=== PATIENT | female | born 1935 | race Caucasian/White ===

== ENCOUNTER 2021-06-12 09:17 | Emergency (ER) | payer MEDICARE ==
--- NOTE | 2021-06-12 10:12 | ERPHSYRPT ---
- History of Present Illness Time Seen by Provider: 06/12/21 10:11 Source: patient Exam Limitations: no limitations Patient Subjective Stated Complaint: pt here with increase sob since yesterday, she has hx of chf and took 3 extra water pills yesterday , she also states she was exposed to covid 2 weeks ago and is worried she has covid . Triage Nursing Assessment: pt alert, resp easy, skin w/d/p. chest clear, abd soft, edema to lower legs, pt also states she is nauseated, Physician History: pt here with increase sob since yesterday, she has hx of chf and took 3 extra water pills yesterday , she also states she was exposed to covid 2 weeks ago and is worried she has covid . Timing/Duration: yesterday Activities at Onset: none Severity of Dyspnea-Max: moderate Severity of Dyspnea-Current: moderate Possible Cause: frequent episodes Modifying Factors: Improves With: nothing Associated Symptoms: wheezing, weakness, No lightheadedness, No ankle swelling, No calf pain, No heaviness, No heart racing, No lightheadedness, No leg swelling Allergies/Adverse Reactions: erythromycin base [From Staticin] Allergy (Verified 06/12/21 09:49) ethyl alcohol [From Staticin] Allergy (Verified 06/12/21 09:49) lisinopril Adverse Reaction (Verified 06/12/21 09:49) metformin Adverse Reaction (Verified 06/12/21 09:49) Hx Influenza Vaccination/Date Given: Yes Hx Pneumococcal Vaccination/Date Given: Yes Immunizations Up to Date: Yes Travel Risk - International Travel Have you traveled outside of the country in past 3 weeks: No - Coronavirus Screening Are you exhibiting any of the following symptoms?: Yes Symptoms: Shortness of Breath Close contact with a COVID-19 positive Pt in past 14-21 Days: Yes - Vaccine Status Have you recieved a Covid-19 vaccination: Yes 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[employer] - Vaccination Dates Date of 2cond Vaccination (if applicable): december - Review of Systems Constitutional: No Fever, No Chills Eyes: No Symptoms Ears, Nose, & Throat: No Symptoms Respiratory: Dyspnea, Dyspnea on Exertion (DIXON), No Cough Cardiac: No Chest Pain, No Edema, No Syncope Abdominal/Gastrointestinal: No Abdominal Pain, No Nausea, No Vomiting, No Diarrhea Genitourinary Symptoms: No Dysuria Musculoskeletal: No Back Pain, No Neck Pain Skin: No Rash Neurological: No Dizziness, No Focal Weakness, No Sensory Changes Psychological: No Symptoms Endocrine: No Symptoms All Other Systems: Reviewed and Negative - Past Medical History Pertinent Past Medical History: Yes Cardiac History: Congestive Heart Failure, Coronary Artery Disease, Hypertension Respiratory History: CHF Endocrine Medical History: Diabetes Type II - Past Surgical History Past Surgical History: Yes Gastrointestinal: Cholecystectomy Female Surgical History: Hysterectomy - Social History Smoking Status: Never smoker Exposure to second hand smoke: No Drug Use: none Patient Lives Alone: No - Female History Hx Last Menstrual Period: post Hx Now: No - Nursing Vital Signs Nursing Vital Signs: Initial Vital Signs Temperature 97.0 F 06/12/21 09:31 Pulse Rate 85 06/12/21 09:31 Respiratory Rate 18 06/12/21 09:31 Blood Pressure 123/101 06/12/21 09:31 O2 Sat by Pulse Oximetry 95 06/12/21 09:31 Pain Scale Pain Intensity 0 - Physical Exam General Appearance: no apparent distress, alert Eye Exam: PERRL/EOMI Neck Exam: normal inspection, supple Respiratory Exam: diminished breath sounds, rhonchi, wheezing Cardiovascular/Chest Exam: normal heart sounds, regular rate/rhythm Abdominal/Gastrointestinal Exam: soft, No tenderness, No distention, No mass Extremity Exam: non-tender, normal range of motion, normal inspection, no calf tenderness, no pedal edema Neurologic Exam: alert, oriented x 3, cooperative, 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, sensation nml, No motor deficits Skin Exam: normal color, warm, No dry SpO2 Interpretation: normal SpO2: 95 O2 Delivery: Room Air - Course Nursing assessment & vital signs reviewed: Yes EKG Interpreted by Me: Sinus Rhythm - Radiology Exams Chest X-ray Interpretation: Reviewed by me (Early CHF changes) Ordered Tests: Active Orders 24 hr Category Date Time Status [employer] STAT Care 06/12/21 10:08 Active EKG-ER Only STAT Care 06/12/21 10:06 Active Oxygen-ED Only Nasal Cannula 2 lpm Care 06/12/21 10:06 Active CHEST 2 VIEWS (PA AND LAT) Stat Exams 06/12/21 10:09 Taken CBC W DIFF Stat Lab 06/12/21 10:06 Completed CMP Stat Lab 06/12/21 10:06 Completed D-DIMER QUANTITATIVE Stat Lab 06/12/21 10:06 Completed MAGNESIUM Stat Lab 06/12/21 10:06 Completed NT PRO BNP Stat Lab 06/12/21 10:06 Completed TROPONIN Q3H Lab 06/12/21 10:15 Completed TROPONIN Q3H Lab 06/12/21 13:15 Ordered TROPONIN Q3H Lab 06/12/21 16:15 Ordered TROPONIN Q3H Lab 06/12/21 19:15 Ordered TROPONIN Q3H Lab 06/12/21 22:15 Ordered UA W/RFX UR CULTURE Stat Lab 06/12/21 10:07 Ordered Lab/Rad Data: Laboratory Result Diagrams 06/12/21 10:06 06/12/21 10:06 Laboratory Results 06/12/21 06/12/21 06/12/21 Range/Units 10:15 10:06 10:06 WBC (4.0-10.5) K/mm3 RBC (4.1-5.4) M/mm3 Hgb (12.0-16.0) gm/dl Hct (35-47) % MCV (78-100) fl MCH (26-32) pg MCHC (32-36) g/dl RDW (11.5-14.0) % Plt Count (150-450) K/mm3 MPV (7.5-11.0) fl Gran % (36.0-66.0) % Eos # (Auto) (0-0.5) Absolute Lymphs (auto) (1.0-4.6) Absolute Monos (auto) (0.0-1.3) Lymphocytes % (24.0-44.0) % Monocytes % (0.0-12.0) % Eosinophils % (0.00-5.0) % Basophils % (0.0-0.4) % Absolute Granulocytes (1.4-6.9) Basophils # (0-0.4) D-Dimer 352 (215-500) ng/mL Sodium 139 (137-145) mmol/L Potassium 4.0 (3.5-5.1) mmol/L Chloride 105 (98-107) mmol/L Carbon Dioxide 23 (22-30) mmol/L Anion Gap 15.0 (5-15) MEQ/L BUN 21 H (7-17) mg/dL Creatinine 0.85 (0.52-1.04) mg/dL Estimated GFR > 60.0 ML/MIN Glucose 217 H (74-106) mg/dL Calcium 9.1 (8.4-10.2) mg/dL Magnesium 2.1 (1.6-2.3) mg/dL Total Bilirubin 0.70 (0.2-1.3) mg/dL AST 21 (14-36) U/L ALT 11 (0-35) U/L Alkaline Phosphatase 88 (38-126) U/L Troponin I < 0.012 (0.000-0.034) ng/mL NT-Pro-B Natriuret Pep 5940 H (0-1800) pg/mL Serum Total Protein 6.7 (6.3-8.2) g/dL Albumin 3.9 (3.5-5.0) g/dL 06/12/21 Range/Units 10:06 WBC 7.5 (4.0-10.5) K/mm3 RBC 4.84 (4.1-5.4) M/mm3 Hgb 14.0 (12.0-16.0) gm/dl Hct 44.8 (35-47) % MCV 92.6 (78-100) fl MCH 28.9 (26-32) pg MCHC 31.3 L (32-36) g/dl RDW 14.6 H (11.5-14.0) % Plt Count 236 (150-450) K/mm3 MPV 11.4 H (7.5-11.0) fl Gran % 73.0 H (36.0-66.0) % Eos # (Auto) 0.18 (0-0.5) Absolute Lymphs (auto) 1.17 (1.0-4.6) Absolute Monos (auto) 0.68 (0.0-1.3) Lymphocytes % 15.5 L (24.0-44.0) % Monocytes % 9.0 (0.0-12.0) % Eosinophils % 2.4 (0.00-5.0) % Basophils % 0.1 (0.0-0.4) % Absolute Granulocytes 5.49 (1.4-6.9) Basophils # 0.01 (0-0.4) D-Dimer (215-500) ng/mL Sodium (137-145) mmol/L Potassium (3.5-5.1) mmol/L Chloride (98-107) mmol/L Carbon Dioxide (22-30) mmol/L Anion Gap (5-15) MEQ/L BUN (7-17) mg/dL Creatinine (0.52-1.04) mg/dL Estimated GFR ML/MIN Glucose (74-106) mg/dL Calcium (8.4-10.2) mg/dL Magnesium (1.6-2.3) mg/dL Total Bilirubin (0.2-1.3) mg/dL AST (14-36) U/L ALT (0-35) U/L Alkaline Phosphatase (38-126) U/L Troponin I (0.000-0.034) ng/mL NT-Pro-B Natriuret Pep (0-1800) pg/mL Serum Total Protein (6.3-8.2) g/dL Albumin (3.5-5.0) g/dL - Progress Progress: improved Air Movement: good Blood Culture(s) Obtained: No Antibiotics given: No Counseled pt/family regarding: lab results, diagnosis, need for follow-up, rad results - Departure Departure Disposition: Home Clinical Impression: CHF (congestive heart failure), NYHA class II Qualifiers: Congestive heart failure type: combined Congestive heart failure chronicity: acute on chronic Qualified Code(s): I50.43 - Acute on chronic combined systolic (congestive) and diastolic (congestive) heart failure Condition: Stable Critical Care Time: Yes Critical Care Time(excluding separately billable procedures): Critical 30-74 mins Referrals: DOCTOR,NO FAMILY [Primary Care Provider] - Instructions: Heart Failure, Heart Failure, Adult (DC) Additional Instructions: Discharge/Care Plan MIGUEL A KEVIN was seen on 06/12/21 in the Emergency Room. The patient was cou nseled regarding Diagnosis,Lab results, Imaging studies, need for follow up and when to return to the Emergency Room. Prescriptions given: Discharge Note I have spoken with the patient and/or caregivers. I have explained the patient's condition, diagnosis and treatment plan based on the information available to me at this time. I have answered the patient's and/or caregiver's questions and addressed any concerns. The patient and/or caregivers have as good understanding of the patient's diagnosis, condition and treatment plan as can be expected at this point. The vital signs have been stable. The patient's condition is stable and appropriate for discharge from the emergency department. The patient will pursue further outpatient evaluation with the primary care physician or other designated or consulting physician as outlined in the discharge instructions. The patient and/or caregivers are agreeable to this plan of care and follow-up instructions have been explained in detail. The patient and/or caregivers have received these instruction. The patient/and or caregivers are aware that any significant change in condition or worsening of symptoms should prompt an immediate return to this or the closest emergency department or call 911. MIGUEL A KEVIN was seen on 06/12/21 n the Emergency Room. At that time you were treated for an emergent condition, during your visit Laboratory, Radiology and/or other procedures may have been ordered. It is very important that you follow-up with your Primary Care Physician NO FAMILY DOCTOR within the next 24- 48 hours to review your Emergency Room visit and the final results of testing that was ordered. Some test results such as Urine Cultures, Blood Cultures, and other cultures if ordered will not be finalized for 24-48 hours. If you do not have a Primary Care Provider please call the medical records department at [phone] ext [phone] to obtain a copy of your results or you may sign into our patient portal to obtain these results by visiting us @ [email or web address] and completing the following steps: 1. Click on the Patient Portal link 2. Click the Patient Self Enrollment Link to complete the enrollment form and entering your 3. Once the enrollment form is completed you will receive an email with a temporary ID and password at the email address you provided. 4. Next choose a user name and password. Your user name must be at least 4 characters long and your password must be at least 4 characters long. 5. Choose a security question from the list and provide your answer to the question. If you already have signed into the Health Portal you may access your Health Care Information 15/05 by the following steps: 1. Login to our website @ [email or web address] 2. Enter your original user name and password. FAQS The [facility] Health Portal is an online tool that contains your Lab Results, Radiology Reports, Visit History, Discharge Instructions and Health Summary Lab and Radiology Results will not be available for 72 hours on the portal. The Portal is a secure site, passwords are encryted and URLs are re-written so they cannot be copied and pasted. You and authorized family members are the only ones who can access your Portal. Also there is a timeout feature that protects your information if you leave the Portal page open. If you have technical difficulty please use the Contact Us link on the page this will allow you to submit any questions you have regarding the Portal or you may contact the Medical Record Department at [phone] ext [phone]. Take lasix 80 mg at &AM and 3 PM with potassium. Call your Habitat Biologist on monday for further instructions.
[2021-06-12 10:22] LABS: Absolute Neutrophil Ct (ANC) 5.49 (1.4-6.9); BASOPHIL % 0.1 % (0.0-0.4); Basophil (Absolute #) 0.01 (0-0.4); Eosinophil % 2.4 % (0.00-5.0); Eosinophil (Absolute #) 0.18 (0-0.5); Hematocrit 44.8 % (35-47); Lymphocyte (Absolute #) 1.17 (1.0-4.6); Lymphocytes % 15.5 % (24.0-44.0); Mean Cell Volume 92.6 fl (78-100); Mean Corpuscular Hemoglobin 28.9 pg (26-32); Mean Corpuscular Hgb Concent. 31.3 g/dl (32-36); Mean Platelet Volume 11.4 fl (7.5-11.0); Monocyte (Absolute #) 0.68 (0.0-1.3); Platelet Count 236 K/mm3 (150-450); Red Blood Count 4.84 M/mm3 (4.1-5.4); Red Cell Distribution Width 14.6 % (11.5-14.0); White Blood Count 7.5 K/mm3 (4.0-10.5)
[2021-06-12 10:40] LABS: ALBUMIN 3.9 g/dL (3.5-5.0); ALKALINE PHOSPHATASE 88 U/L (38-126); BLOOD UREA NITROGEN 21 mg/dL (7-17); CHLORIDE 105 mmol/L (98-107); Calcium 9.1 mg/dL (8.4-10.2); Carbon Dioxide 23 mmol/L (22-30); Creatinine 1 0.85 mg/dL (0.52-1.04); EST GLOMERULAR FILTRATION RATE > 60.0 ML/MIN; Glucose 217 mg/dL (74-106); MAGNESIUM 2.1 mg/dL (1.6-2.3); NT PRO BNP 5940 pg/mL (0-1800); SGOT/AST 21 U/L (14-36); SGPT/ALT 11 U/L (0-35); SODIUM 139 mmol/L (137-145); Total Protein 6.7 g/dL (6.3-8.2)
[2021-06-12 11:57] VITALS: BP 104/71; PULSE 72; O2SAT 93
--- NOTE | 2021-06-12 20:32 | XRAY ---
Indication: Short of breath. Suspect COVID 19. Comparison: None PA/lateral chest hyperinflated with chronic interstitial lung markings and tiny blunting both costophrenic angles favoring pleural effusion/thickening. Remaining lungs clear. Heart not enlarged with left AICD. Heavy scattered aortic calcifications. Bony thorax intact with mild osteopenia and degenerative changes. Impression: Tiny bilateral costophrenic angle pleural effusion/thickening. COPD. Negative for acute pneumonic process or CHF.
== END 2021-06-12 11:57 | disposition home or self-care (01) ==
LOC: ED 09:17
DX: I50.43 Acute on chronic combined systolic (congestive) and diastolic (congestive) heart failure (principal); I25.10 Atherosclerotic heart disease of native coronary artery without angina pectoris; I10 Essential (primary) hypertension; E11.9 Type 2 diabetes mellitus without complications
CPT/HCPCS: 36415; 71046; 80053; 83735; 83880; 84484; 85025; 85379; 93005; 93041; 99284; 99291; U0003

== ENCOUNTER 2021-07-08 13:54 | Emergency (ER) | payer MEDICARE ==
[2021-07-08 15:26] VITALS: O2SAT 95
[2021-07-08 15:59] LABS: Appearance CLEAR (CLEAR); Bacteria MODERATE /HPF (NEGATIVE); Bilirubin NEGATIVE (NEGATIVE); Blood NEGATIVE Ery/ul (0-5); Epithelial Cells RARE /HPF (FEW); Glucose NEGATIVE (NEGATIVE); Ketones NEGATIVE (NEGATIVE); Leukocyte Esterase NEGATIVE (NEGATIVE); Mucus SLIGHT /HPF (NEGATIVE); Nitrite NEGATIVE (NEGATIVE); Protein,Urine Dip NEGATIVE (Negative); RBC 0-2 /HPF (0-2); Specific Gravity 1.011 (1.005-1.025); Urobilinogen NEGATIVE mg/dL (0-1); WBC 0-2 /HPF (0-5)
--- NOTE | 2021-07-08 16:15 | ERPHSYRPT ---
- History of Present Illness Time Seen by Provider: 07/08/21 14:02 Source: patient Exam Limitations: no limitations Patient Subjective Stated Complaint: UTI Triage Nursing Assessment: pt to ED c/o UTI. states ambucare prescribed cipro for UTI right now and she has taken 8 days worth of her abx. called pcp to be reevaulated today but was instead sent to ED. pt in ED today to see if her UTI has been treated with the abx yet. no new sx. Physician History: 86 years old female with multiple medical problems who was recently treated for UTI with cefuroxime, finished course of antibiotic 2 days ago presented in the ER for urinalysis recheck to make sure her UTIs resolved. Denies any burning urination, increased frequency urgency or generalized weakness which she had at before she was diagnosed. Does have some dull low back pain at times. Denies any hematuria. No nausea or vomiting fever or chills reported. Allergies/Adverse Reactions: amiodarone Allergy (Verified 07/08/21 14:53) erythromycin base [From Staticin] Allergy (Verified 07/08/21 14:53) ethyl alcohol [From Staticin] Allergy (Verified 07/08/21 14:53) lisinopril Adverse Reaction (Verified 07/08/21 14:53) metformin Adverse Reaction (Verified 07/08/21 14:53) Home Medications: Aspirin 81 gm Chew [Baby Aspirin 81 mg Chew] 81 mg PO DAILY 07/08/21 [History] Brinzolamide [Azopt] 10 ml OP BID 07/08/21 [History] Calcium/Vit D3/Mag/Folic AC/K1 [Biocal Softgel] 2 each PO DAILY 07/08/21 [History] Cetirizine HCl [Zyrtec] 10 mg PO DAILY 07/08/21 [History] Fluticasone Furoate [Arnuity Ellipta] 100 mcg IH DAILY 07/08/21 [History] Furosemide 40 mg [Lasix 40 MG] 80 mg PO BID 07/08/21 [History] Gabapentin 100 mg [Neurontin 100 MG] 100 mg PO DAILY PRN PRN 07/08/21 [History] Glipizide Xl 10 mg [Glucotrol Xl 10 MG] 20 mg PO BID 07/08/21 [History] Losartan Potassium 50 mg [Cozaar 50 MG] 50 mg PO DAILY 07/08/21 [History] Metoprolol Succinate 100 mg [Toprol Xl 100 MG] 100 mg PO DAILY 07/08/21 [History] Nitroglycerin 0.4 mg Tablet [Nitrostat 0.4 MG Tablet] 0.4 mg SL DAILY PRN PRN 07/08/21 [History] Omeprazole 20 mg PO DAILY 07/08/21 [History] Potassium Chloride 10 Meq Tab* [Klor Con 10 MEQ] 40 meq PO DAILY 07/08/21 [History] Vit C/E/Zn/Coppr/Lutein/Zeaxan [Preservision Areds 2 Softgel] 2 each PO DAILY 07/08/21 [History] Warfarin Sodium 5 mg [Coumadin 5 MG] 5 mg PO DAILY 07/08/21 [History] Hx Tetanus, Diphtheria Vaccination/Date Given: Yes Hx Influenza Vaccination/Date Given: Yes Hx Pneumococcal Vaccination/Date Given: Yes Immunizations Up to Date: Yes Travel Risk - International Travel Have you traveled outside of the country in past 3 weeks: No - Coronavirus Screening Are you exhibiting any of the following symptoms?: No Close contact with a COVID-19 positive Pt in past 14-21 Days: No - Vaccine Status Have you recieved a Covid-19 vaccination: Yes 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[employer] - Vaccination Dates Date of 2cond Vaccination (if applicable): nov - Review of Systems Constitutional: No Symptoms Ears, Nose, & Throat: No Symptoms Respiratory: No Symptoms Cardiac: No Symptoms Abdominal/Gastrointestinal: No Symptoms Genitourinary Symptoms: No Symptoms Musculoskeletal: No Symptoms Skin: No Symptoms Neurological: No Symptoms Endocrine: No Symptoms Hematologic/Lymphatic: No Symptoms - Past Medical History Pertinent Past Medical History: Yes Cardiac History: Congestive Heart Failure, Coronary Artery Disease, Hypertension Respiratory History: CHF Endocrine Medical History: Diabetes Type II - Past Surgical History Past Surgical History: Yes Gastrointestinal: Cholecystectomy Female Surgical History: Hysterectomy - Social History Smoking Status: Never smoker Exposure to second hand smoke: No Drug Use: none Patient Lives Alone: No - Female History Hx Now: No - Nursing Vital Signs Nursing Vital Signs: Initial Vital Signs Temperature 98.1 F 07/08/21 14:47 Pulse Rate 73 07/08/21 14:47 Respiratory Rate 16 07/08/21 14:47 Blood Pressure 124/58 07/08/21 14:47 O2 Sat by Pulse Oximetry 98 07/08/21 14:47 Pain Scale Pain Intensity 0 - Physical Exam General Appearance: no apparent distress, alert Eye Exam: PERRL/EOMI Ears, Nose, Throat Exam: normal ENT inspection Neck Exam: normal inspection, full range of motion Respiratory Exam: normal breath sounds, lungs clear Cardiovascular Exam: regular rate/rhythm, normal heart sounds Gastrointestinal/Abdomen Exam: soft, normal bowel sounds, No tenderness Back Exam: normal inspection, normal range of motion, No CVA tenderness Extremity Exam: normal inspection, normal range of motion Neurologic Exam: alert, oriented x 3, cooperative Skin Exam: normal color SpO2 Interpretation: normal SpO2: 95 O2 Delivery: Room Air Ordered Tests: Active Orders 24 hr Category Date Time Status CULTURE,URINE Stat Lab 07/08/21 15:25 Received UA W/RFX UR CULTURE Stat Lab 07/08/21 15:25 Completed Lab/Rad Data: Laboratory Results 07/08/21 Range/Units 15:25 Urine Color YELLOW (YELLOW) Urine Appearance CLEAR (CLEAR) Urine pH 5.0 (5-6) Ur Specific [place] 1.011 (1.005-1.025) Urine Protein NEGATIVE (Negative) Urine Ketones NEGATIVE (NEGATIVE) Urine Blood NEGATIVE (0-5) Benito/ul Urine Nitrite NEGATIVE (NEGATIVE) Urine Bilirubin NEGATIVE (NEGATIVE) Urine Urobilinogen NEGATIVE (0-1) mg/dL Ur Leukocyte Esterase NEGATIVE (NEGATIVE) Urine WBC (Auto) 0-2 (0-5) /HPF Urine RBC (Auto) 0-2 (0-2) /HPF U Hyaline Cast (Auto) 6-10 (0-2) /LPF U Epithel Cells (Auto) RARE (FEW) /HPF Urine Bacteria (Auto) MODERATE (NEGATIVE) /HPF Urine Mucus (Auto) SLIGHT (NEGATIVE) /HPF Urine Culture Reflexed YES (NO) Urine Glucose NEGATIVE (NEGATIVE) mg/dL - Progress Progress: unchanged Progress Note: 07/08/21 16:16 Patient is grossly asymptomatic. Her urinalysis is negative for WBC, nitrites, leukocyte Estrace but has some moderate bacteria which could be pyuria, she is not much symptomatic and I will wait for the culture sensitivity results before starting her on a different antibiotics. Plan discussed with patient who understand and agrees with it. Counseled pt/family regarding: lab results, diagnosis, need for follow-up - Departure Departure Disposition: Home Clinical Impression: UTI symptoms Condition: Stable Critical Care Time: No Referrals: Provider,Unknown [Primary Care Provider] - YASMEEN JARRELL MD [ACTIVE STAFF] - Follow Up with PCP/3 days Instructions: Urinary Tract Infection, Adult (DC) Additional Instructions: FOLLOW UP WITH PCP FOR RE EVALUATION, WAIT TILL THE CULTURES ARE BACK TO SEE IF YOU NEEDS ANTIBIOTICS , TAKE TYLENOL NEEDED. RETURN TO ER FOR ANY WORSENING OF PAIN , INCREASED FREQUENCY , BURNING ETC.
[2021-07-08 16:33] VITALS: BP 100/65; PULSE 69
== END 2021-07-08 16:32 | disposition home or self-care (01) ==
LOC: ED 13:54
DX: N39.0 Urinary tract infection, site not specified (principal); E11.9 Type 2 diabetes mellitus without complications; Z79.899 Other long term (current) drug therapy; I50.9 Heart failure, unspecified; I25.10 Atherosclerotic heart disease of native coronary artery without angina pectoris; I10 Essential (primary) hypertension
CPT/HCPCS: 81001; 87086; 99283